=== PATIENT | female | born 1940 | race Caucasian/White ===

== ENCOUNTER → 2023-05-16 11:25 | Outpatient (CLI) | payer MEDICARE, OTHER, SELFPAY ==
--- NOTE | 2023-05-16 11:30 | DI.CT.S_ITS ---
PROCEDURE: CT CHEST ABDOMEN W CON INDICATIONS: Left upper quadrant pain TECHNIQUE: After the administration of intravenous contrast, 5 mm thick sections acquired from the lung apices to the iliac crests. 5 mm coronal and sagittal reformats were performed, with additional 7 mm coronal MIP reformats through the lungs. For radiation dose reduction, the following was used: automated exposure control, adjustment of mA and/or kV according to patient size. COMPARISON: None. FINDINGS: Image quality: Diagnostic. CHEST: Lower Neck: No enlarged lymph nodes. Thyroid: Diffuse enlargement of the thyroid gland, left lobe greater than right. Scattered calcifications are present bilaterally. Axillae: Surgical clips in both axilla, right more numerous than left. No enlarged lymph nodes. Chest Wall: Bilateral mastectomy changes. Bones: Exaggerated thoracic kyphosis and lumbar lordosis. No visible bone lesions. No compression fractures. Degenerative disc height loss in the upper thoracic spine. Lungs and Pleura: Central and peripheral airways are normal without bronchial wall thickening or bronchiectasis. No suspicious lung nodule or mass. No consolidation, effusion, or pneumothorax. Heart: Mild cardiomegaly. Dense mitral annular and aortic valvular calcification. Mild coronary artery calcification. Thoracic Vessels: The aorta and pulmonary arteries demonstrate normal size. Mild aortic calcification. Mediastinum and Leigh: No enlarged lymph nodes. Esophagus: No wall thickening. Small hiatal hernia. ABDOMEN: Liver: Normal size. Smooth margin. Mild steatosis. No mass visible. Gallbladder: Distended gallbladder. No wall thickening. No visible calcification. Biliary ducts: No biliary dilation. Pancreas: Normal. Spleen: Normal size. 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 There is arterial opacification of the aneurysm. Adrenal Glands: No adrenal nodules. Kidneys and Ureters: Symmetric enhancement. No nephrolithiasis or hydronephrosis. No hydroureter. Stomach and Bowel: Stomach and visible bowel loops are within normal limits. Peritoneum: No abnormal intraperitoneal fluid. No free air. Ventral Wall: No significant ventral hernia. Abdominal Nodes: No retroperitoneal or mesenteric adenopathy by size criteria. Vessels: Aorta and inferior vena cava are normal in size. Atherosclerotic calcification of the aorta and branch vessel origins. There is a prominent left ovarian vein, nonspecific. Bones: No aggressive osseous abnormality. IMPRESSION: No acute process in the chest or abdomen. 2 cm calcified splenic artery aneurysm. Dictated by: Mckenzie Gutierres M.D. on 05/16/2023 at 17:27 Approved by: Mckenzie Gutierres M.D. on 05/16/2023 at 17:35
[2023-05-16 12:45] LABS: Estimated Glomerular Filt Rate > 60 mL/min (>60)
== END ==
LOC: CT 11:28
PROVIDERS: Radiology Diagnostic Radiology; PCP Registered Nurse; Referring Provider Registered Nurse; Visit Provider Registered Nurse
DX: I72.8 Aneurysm of other specified arteries (principal); K76.0 Fatty (change of) liver, not elsewhere classified; R10.12 Left upper quadrant pain; R74.8 Abnormal levels of other serum enzymes; I25.10 Atherosclerotic heart disease of native coronary artery without angina pectoris; I70.0 Atherosclerosis of aorta; M40.204 Unspecified kyphosis, thoracic region; I51.7 Cardiomegaly; K44.9 Diaphragmatic hernia without obstruction or gangrene; Z90.13 Acquired absence of bilateral breasts and nipples
CPT/HCPCS: 36415; 71260; 74160; 82565; Q9967